=== PATIENT | female | born 1975 | race Caucasian/White ===

== ENCOUNTER 2017-07-25 00:07 | Emergency (ER) | payer MEDICAID ==
[~2017-07-25] VITALS: Ht 162.6 cm; Wt 79.4 kg
--- NOTE | 2017-07-25 00:12 | NUR ---
PT ALEXANDRA MCDONALD. TAKEN TO CHAIR D
[2017-07-25 00:16] VITALS: BP 166/111
--- NOTE | 2017-07-25 00:55 | NUR ---
42Y/F PT. BIBA TO ED WITH C/O CHEST PAIN X 30 MINS. PER EMS; PT. STATES SMOKE METH 30 MINS BEFORE HAVING CHEST PAIN, SHARP PAIN, NO RADIATION. ASA 324 MG GIVEN 5 MINS BEFORE ARRIVAL. DENIES MED HX. PD ON SCENE STATES PT. RUN TO TRAFFIC, ALOC. ALSO HALLUCINATION, PT. STATES " I AM SEEING PEOPLE WHO DON'T LIKE ME AND TRY TO HURT ME". PD PLACE PT. ON 5150 HOLD. PT. AAO X4, AMBULATED VIA W/C ASSIST AT THIS TIME. REPIRATIONS RA, EVEN AND UNLABORED, BL LUNG CLEAR. STATES NO PAIN AT THIS TIME. PLACE PT.ON COMFORTABLE POSITION, ALL BELONGING REMOVED. VS, BP ELEVATED, ER MD MADE AWARE OF PT. STATUS.
--- NOTE | 2017-07-25 01:04 | NUR ---
Dr. Peterson evaluating patient.
[2017-07-25] MEDS ORDERED: NACL 0.9% 1,000 ML IV ONE ×2 (01:10→06:40)
[2017-07-25] MEDS ORDERED: LORazepam 1 MG TAB PO ONE ×2 (01:10→07:40)
--- NOTE | 2017-07-25 01:14 | NUR ---
PT TAKEN TO CT VIA W/C IN STABLE CONDITION
--- NOTE | 2017-07-25 01:20 | NUR ---
PT RETURN FROM RADIOLOGY
[2017-07-25 01:33] LABS: BASOPHILS # (AUTO) 0.2 K/uL (0.00-0.22); BASOPHILS % (AUTO) 3.8 % (0.0-2.0); EOSINOPHILS % (AUTO) 0.4 % (0.0-4.0); HEMATOCRIT 41.8 % (36-48); HEMOGLOBIN 13.6 g/dL (12.0-16.0); LYMPHOCYTES # (AUTO) 0.7 K/uL (2.5-16.5); LYMPHOCYTES % (AUTO) 11.7 % (20.5-51.1); MEAN CORPUSCULAR HEMOGLOBIN 30 pg (27-31); MEAN CORPUSCULAR HGB CONC 33 g/dL (33-37); MEAN CORPUSCULAR VOLUME 91.1 fL (80-94); MONOCYTES # (AUTO) 0.7 K/uL (0.8-1.0); MONOCYTES % (AUTO) 11.7 % (1.7-9.3); NEUTROPHILS # (AUTO) 4.5 K/uL (1.8-7.7); NEUTROPHILS % (AUTO) 72.4 % (42.2-75.2); PLATELET COUNT (AUTO) 281 K/uL (140-450); RED BLOOD CELL COUNT(AUTO) 4.59 MIL/uL (4.20-5.40); WHITE BLOOD COUNT (AUTO) 6.1 K/uL (4.8-10.8)
--- NOTE | 2017-07-25 01:35 | NUR ---
PT MOVED TO BED 4
[2017-07-25 01:52] LABS: APPEARANCE,URINE CLEAR (CLEAR); BILIRUBIN,URINE NEGATIVE (NEGATIVE); BLOOD, URINE NEGATIVE (NEGATIVE); COLOR,URINE YELLOW (YELLOW); LEUKOCYTE ESTERASE ,URINE NEGATIVE (NEGATIVE); NITRITE, URINE NEGATIVE (NEGATIVE); UGLUCOSE NEGATIVE (NEGATIVE)
[2017-07-25 01:52] LABS: PROTHROMBIN TIME 9.9 secs (10.8-13.4)
--- NOTE | 2017-07-25 02:11 | NUR ---
Patient appears to be resting comfortably in bed. Vital Signs within normal limits. Respirations even and unlabored.
--- NOTE | 2017-07-25 03:26 | NUR ---
Patient appears to be resting comfortably in bed. Vital Signs within normal limits. Respirations even and unlabored.
--- NOTE | 2017-07-25 04:30 | NUR ---
Patient appears to be resting comfortably in bed. Vital Signs within normal limits. Respirations even and unlabored.
[2017-07-25] MEDS ORDERED: ASPIRIN 325 MG TAB PO ONE (05:25)
--- NOTE | 2017-07-25 05:39 | NUR ---
Patient appears to be resting comfortably in bed. Vital Signs within normal limits. Respirations even and unlabored.
--- NOTE | 2017-07-25 06:15 | NUR ---
Patient appears to be resting comfortably in bed. Vital Signs within normal limits. Respirations even and unlabored.
[2017-07-25 06:30] LABS: ANION GAP 14.2 (8-16); CHLORIDE 101 mmol/L (98-107); GLUCOSE 110 mg/dL (74-106); POTASSIUM 4.2 mmol/L (3.5-5.1); SODIUM SERUM 139 mmol/L (136-145)
[2017-07-25 06:31] LABS: ASPARTATE AMINOTRANSFERASE 32 U/L (15-37); GFR ARICAN-AMERICAN 78 mL/min (>90); TOTAL BILIRUBIN 0.3 mg/dL (0.0-1.0); UREA NITROGEN, BLOOD 10 mg/dL (7-18)
[2017-07-25 06:32] LABS: ACETAMINOPHEN < 0.5 ug/ml (10-30); ALBUMIN 4.1 g/dL (3.4-5.0); SALICYLATE < 2.8 mg/dL (2.8-20.0)
[2017-07-25 06:34] LABS: BARBITURATE, URINE NEGATIVE ng/ml (NEG <=200); BENZODIAZEPINE, URINE NEGATIVE ng/mL (NEG <=200); CANNABINOID, URINE NEGATIVE ng/mL (NEG <=50); COCAINE, URINE POSITIVE ng/mL (NEG <=300); OPIATE, URINE NEGATIVE ng/mL (NEG <=2000); PHENCYCLIDINE SCREEN,URINE NEGATIVE ng/mL (NEG <=25)
--- NOTE | 2017-07-25 06:55 | NUR ---
PT MOVED TO BED 3
--- NOTE | 2017-07-25 07:12 | NUR ---
GIVE REPORT TO JOSE FARAH. PT. RESTING IN BED, NO S/SX OF DISTRESS AT THIS TIME.
--- NOTE | 2017-07-25 07:27 | NUR ---
REPORT RECIEVED FROM LILIANE GARCIA. PT AWAKE AND SITTING IN BED. SHE SAID THAT SHE WAS REALLY DEPRESSED FELLING ANXIOUS AND STILL SEEING HALLUCINATIONS WHEN ASKED WHAT TYPE OF HALLUCINATIONS SHE SAID "NEGATIVIVY".SHE DECLINED BREAKFAST THIS MORNING. DR KRISHNAMURTHY MADE AWARE. PT KEPT IN VISUAL SIGHT.
--- NOTE | 2017-07-25 08:25 | NUR ---
PT IS SLEEPING IN BED WITH NO S/S OF DISTRESS SUICIDE PRECAUTIONS IN PLACE AND PT CONTINUES ON 1;1 MONITORING.
--- NOTE | 2017-07-25 09:27 | NUR ---
PT TAKEN TO BATHROOM SUICIIDE AND SAFTEY PRECAUTIONS IN PLACE WILL CONTINUE TO MONITOR V/S T 98.0 P82 R 18 B/P 129/91 O2 100. PT IN NO DISTRESS
--- NOTE | 2017-07-25 09:41 | NUR ---
Patient discharged with v/s stable. Written and verbal after care instructions given and explained. Patient alert, oriented and verbalized understanding of instructions. Wheel Chair Assisted with to home. All questions addressed prior to discharge. ID band removed. Patient advised to follow up with PMD. Rx of motrin given. Patient educated on indication of medication including possible reaction and side effects. Opportunity to ask questions provided and answered. Addendum: 07/25/17 at 1104 by [facility] note incorrect, wrong patient.
--- NOTE | 2017-07-25 09:41 | NUR ---
Amend above note by Cricket Williamson. Charted on wrong patient.
--- NOTE | 2017-07-25 09:45 | NUR ---
[facility] aware of patient and will assist with placement. Patient packet recv'd and the following facilities have been contacted but no available beds at this time: [facility], [facility], [facility], [facility]. [facility] was contacted, packet faxed for review and possible bed availability.
--- NOTE | 2017-07-25 10:40 | NUR ---
RR ARE EVEN AND UNLABORED. Pt laying supine in gurney with eye closed. Lights dimmed. Suicidial precautions in placed. sitter by beside. Will continue to monitor.
--- NOTE | 2017-07-25 10:40 | NUR ---
Note glenna in EDM - 07/25/17 at 1401 by ULISES PT IS AOX4. RR ARE EVEN AND UNLABORED. Pt laying supine in gurney with eye closed. Lights dimmed. Pt with no complaints. Suicidial precautions in placed. sitter by beside. Will continue to monitor.
--- NOTE | 2017-07-25 10:40 | NUR ---
Note undone in EDM - 07/25/17 at 1400 by ULISES PT IS AOX4. RR ARE EVEN AND UNLABORED. Pt laying supine in gurney with eye closed. Lights dimmed. Pt calm and cooperative. Pt with no complaints. Suicidial precautions in placed. sitter by beside. Will continue to monitor.
--- NOTE | 2017-07-25 11:40 | NUR ---
PT IS AOX4. RR ARE EVEN AND UNLABORED. Pt calm and cooperative. Pt with no complaints. Suicidial precautions in placed. sitter by beside. Will continue to monitor.
--- NOTE | 2017-07-25 12:40 | NUR ---
LUNCH BY BEDSIDE. PT IS AOX4. RR ARE EVEN AND UNLABORED. PT DENIES ANY SI OR HI IDEATION AT THIS TIME. PT DENIES ANY AUDITORY hallucinations. Pt calm and cooperative. Pt with no complaints. Suicidial precautions in placed. sitter by beside. Will continue to monitor.
--- NOTE | 2017-07-25 13:40 | NUR ---
PT IS AOX4. RR ARE EVEN AND UNLABORED. Pt awake and sitting up in bed. Pt is calm and cooperative. Pt with no complaints. Suicidial precautions in placed. sitter by beside. Will continue to monitor.
--- NOTE | 2017-07-25 13:53 | NUR ---
Spoke to Tara Ramos from [facility] at . Pt is accepted to facility. Per Tara, pt to arrive at 1630. Call to give report at [phone]. Derek Newton is accepting physician. Pt to rm [id number] at Delayed Unit.
--- NOTE | 2017-07-25 14:40 | NUR ---
Pt resting with eyes closed laying supine in rney. RR are even and unlabored. Pt with no complaints. Suicidial precautions in placed. Sitter by beside. Will continue to monitor.
--- NOTE | 2017-07-25 15:40 | NUR ---
2827 DR GARCIA ARRIVED FOR PSYCH CONSULT
--- NOTE | 2017-07-25 15:44 | NUR ---
Minda Garcia by bedside examining patient
--- NOTE | 2017-07-25 15:47 | NUR ---
Patient aox4. Patient calm and cooperative. No acute distress noted. Suicidial precautions in place. Minda Garcia and rich by bedside. Will continue to monitor.
--- NOTE | 2017-07-25 15:54 | NUR ---
[facility] ARRIVED FOR TRANSPORT TO [facility]
--- NOTE | 2017-07-25 15:54 | NUR ---
DR GARCIA INFORMED US THAT PT WILL BE KEPT ON 5150 HOLD
--- NOTE | 2017-07-25 16:07 | NUR ---
Patient to be transferred to [facility]. Is being transferred due to higher level of care. Receiving facility has accepting physician and available space. ER physician has signed transfer form. Patient or responsible libertarian has agreed to transfer and signed form. Patient belongings inventoried and will be sent with patient. Copy of nursing notes, lab reports, EKG, Physicians Orders and X-rays to be sent with patient. Report called to Darleen GARCIA at receiving facility. [facility] ambulance service has been called for transfer. ETA is 1610.
[2017-07-25 16:15] VITALS: BP 121/82
--- NOTE | 2017-07-25 16:15 | NUR ---
Patient left facility via BLS [facility]. Pt AOx4. GCS=15. RR are even and unlabored. Stable for transportation. Patient left er without incident
== END 2017-07-25 16:15 | disposition home or self-care (01) ==
LOC: MED 00:07
DX: R44.3 Hallucinations, unspecified (principal); R07.9 Chest pain, unspecified
CPT/HCPCS: 36415; 71045; 80053; 80305; 81003; 82550; 84484; 85025; 85610; 93005; 96360; 99285; G0480; G0482; J7030; 81025